=== PATIENT | male | born 1980 | race Caucasian/White ===

== ENCOUNTER 2016-11-26 13:54 | Emergency (ER) | payer OTHER ==
[~2016-11-26] VITALS: Ht 185.4 cm; Wt 106.8 kg
[~2016-11-26 13:54] MED LIST: AMLODIPINE BESYL5 MG PO; AUGMENTIN875 MG PO; ESOMEPRAZOLE MA40 MG PO; LOSARTAN POTAS100 MG PO; MAGNESIUM400 M1 PO; MULTIPLE VITAM1 EACH PO; OXYCODONE-APAP1 EACH PO; PIROXICAM20 MG PO
[2016-11-26 16:09] LABS: CHLORIDE 106 mEq/L (99-109); POTASSIUM 4.9 mEq/L (3.7-5.4); SODIUM 140 mEq/L (136-147)
[2016-11-26 16:10] LABS: GLUCOSE 116 mg/dL (70-99)
[2016-11-26 16:12] LABS: ANION GAP 12 MEQ/L (2-14)
[2016-11-26 16:14] LABS: GFR ESTIMATE (CALCULATED) > 59 mL/min/
[2016-11-26 16:15] LABS: UREA NITROGEN (BUN) 15 mg/dL (9-23)
[2016-11-26 16:20] LABS: TROP-I INTERPRETATION NEGATIVE; TROPONIN-I < 0.01 ng/mL (0.0-0.30)
[2016-11-26] MEDS ORDERED: MOTRIN600 MG PO (16:37)
[2016-11-26 16:47] VITALS: BP 124/101
== END 2016-11-26 16:47 | disposition home or self-care (01) ==
LOC: EME 13:54
PROVIDERS: Physician Assistant
DX: M94.0 Chondrocostal junction syndrome [Tietze] (principal); I10 Essential (primary) hypertension; K21.9 Gastro-esophageal reflux disease without esophagitis
CPT/HCPCS: 71020; 80048; 84484; 93005; 99281; 99283